=== PATIENT | female | born 1955 | race Caucasian/White ===

== ENCOUNTER 2021-12-04 12:25 | Outpatient (CLI) | payer OTHER | END 2021-12-04 12:30 | disposition home or self-care (01) | LOC: SONOGRAMA 12:25 | PROVIDERS: ATTEND Otolaryngology | DX: R22.1 Localized swelling, mass and lump, neck (principal) ==

== ENCOUNTER 2021-12-12 10:50 | Outpatient (CLI) | payer OTHER | END 2021-12-12 10:53 | disposition home or self-care (01) | LOC: SONOGRAMA 10:50 | PROVIDERS: ATTEND Pathology Anatomic Pathology & Clinical Pathology | DX: D11.0 Benign neoplasm of parotid gland (principal) ==